=== PATIENT | female | born 1970 | race Caucasian/White ===

== ENCOUNTER 2019-04-02 07:33 | Outpatient (CLI) | payer BC, SELFPAY ==
[2019-04-02 08:20] LABS: Basophils % 0.6 %; Eosinophils # 0.2 10^3/uL (0.0-0.8); Eosinophils % 4.7 %; Hematocrit 38.3 % (37.0-47.0); Hemoglobin 12.7 g/dL (11.5-15.3); Lymphocytes # 2.7 10^3/uL (0.8-4.8); Lymphocytes % 52.7 %; Mean Corpuscular HGB Conc 33.2 g/dL (30.0-36.0); Mean Corpuscular Hemoglobin 29.5 pg (28.0-34.0); Mean Corpuscular Volume 89.1 fL (81-99); Mean Platelet Volume 9.3 fL (7.4-10.4); Monocytes # 0.4 10^3/uL (0.2-0.9); Monocytes % 7.1 %; Neutrophils # 1.8 10^3/uL (1.8-7.7); Neutrophils % 34.7 %; Nucleated Red Blood Cells % 0 %; Platelet Count 417 10^3/cmm (130-400); White Blood Count 5.1 10^3/uL (4.0-10.0)
== END 2019-04-02 07:34 | disposition home or self-care (01) ==
LOC: ONCMED 07:37
PROVIDERS: Family Provider Family Medicine; PCP Family Medicine; Referring Provider Family Medicine; Visit Provider Internal Medicine Hematology & Oncology
DX: D47.3 Essential (hemorrhagic) thrombocythemia (principal); F41.9 Anxiety disorder, unspecified; J45.909 Unspecified asthma, uncomplicated; E55.9 Vitamin D deficiency, unspecified; L50.9 Urticaria, unspecified; Z79.51 Long term (current) use of inhaled steroids; Z90.710 Acquired absence of both cervix and uterus; Z87.891 Personal history of nicotine dependence
CPT/HCPCS: 36415; 85025; 99204

== ENCOUNTER 2019-04-10 07:43 | Outpatient (CLI) | payer BC, SELFPAY ==
--- NOTE | 2019-04-10 07:50 | MM_ITS ---
WS: [id number] SCREENING DIGITAL MAMMOGRAM WITH CAD HISTORY: SCREENING COMPARISON: 01/07/2016 Bilateral CC and MLO views submitted. Computer aided detection analyzed. Breast composition: There are scattered areas of fibroglandular density. No suspicious masses, microc alcifications or architectural distortion. MM/[place] [id number] IMPRESSION: BI-RADS: 1-Negative FOLLOW UP: 1 Year Follow-up
== END 2019-04-10 07:44 | disposition home or self-care (01) ==
LOC: RADSHAW 07:46
PROVIDERS: Family Provider Family Medicine; PCP Family Medicine; Visit Provider Family Medicine
DX: Z12.31 Encounter for screening mammogram for malignant neoplasm of breast (principal)
CPT/HCPCS: 77067

== ENCOUNTER 2020-12-02 20:00 | Outpatient (CLI) | payer BC, SELFPAY | END 2020-12-02 20:01 | disposition home or self-care (01) | LOC: SLEEP 12-03 08:49 | PROVIDERS: Family Provider Family Medicine; PCP Internal Medicine; Visit Provider Internal Medicine Pulmonary Disease | DX: G47.33 Obstructive sleep apnea (adult) (pediatric) (principal) | CPT/HCPCS: 95810 ==

== ENCOUNTER 2021-09-23 13:18 | Emergency (ER) | payer BC, SELFPAY ==
--- NOTE | 2021-09-23 13:33 | XR_ITS ---
WS: [id number] XR ankle RT min 3V* [id number] REASON FOR EXAM: R ankle pain FINDINGS: There is focal soft tissue swelling over the lateral malleolus. This is associated with a small slive r of bone density immediately adjacent to the syndesmotic (lateral) surface of the tibia. No other acute fracture is identified. The joint spaces of the right ankle appear intact. There may be a small anterior joint effusion. XR/XR ankle RT min 3V* [id number] IMPRESSION: Possible acute small avulsion injury of the tibial aspect of the tibiofibular s yndesmosis.
[2021-09-23 13:44] VITALS: BP 129/85; PULSE 72; RESP 16; TEMP 36.7; O2SAT 99; BMI 35.8
--- NOTE | 2021-09-23 14:02 | ED_ITS ---
HPI - Extremity Problem General: Chief complaint: Extremity Injury, Lower Stated complaint: right ankle pain Time Seen by Provider: 09/23/21 13:50 Source: patient Mode of arrival: wheelchair Limitations: no limitations History of Present Illness: 50-year-old female presents to the ER today for right ankle pain. Patient reports she was walking across a parking lot and stepped in a hole. She reports her ankle rolled. Patient denies feeling a pop. She reports she had immediate pain and swelling in that ankle. Patient reports she does not take anything for pain at this time. She reports pain with any weightbearing. She describes as a sharp shooting pain and also a burning pain over the ankle bone. Denies any prior injury to this ankle. Review of Systems General: Reports: 10 or more systems reviewed and unremarkable except in HPI and below PFSH ED PFSH: Social History Smoking and tobacco status: former smoker Quit status (tobacco): has quit using tobacco Year quit tobacco: 2012 Former quit date comment: 0.75ppd x 25 years Physical Exam Const: COMMON NORMALS: average body habitus, patient oriented x3, no limitations, healthy appearing and alert Resp: COMMON NORMALS: normal respiratory effort EFFORT & INSPECTION: Yes able to speak in complete sentences Cardio: COMMON NORMALS: regular rate and regular rhythm RATE: regular rate RHYTHM: regular rhythm Extremity: NARRATIVE EXTREMITY EXAM: Patient has moderate swelling directly over the right lateral malleolus. Patient has pain with any range of motion or weightbearing of the right ankle. Flexion and extension in addition to inversion and eversion both cause worsening pain. Neuro: COMMON NORMALS: patient oriented x3 SENSORIUM/ORIENTATION: Yes alert Psych: COMMON NORMALS: mental status grossly normal, Normal thought process present and cooperative THOUGHT PROCESS: Normal thought process present Skin: COMMON NORMALS: no rashes or lesions noted and no wounds GENERAL SKIN EXAM: no rashes or lesions noted Course ED course: 50-year-old female presents to the ER today for right ankle pain. Patient reports just prior to arrival she was walking across a parking lot and stepped in a hole, twisting the right ankle. She denies feeling a pop but reports immediate pain and swelling in that ankle. Patient reports it is a burning and stabbing pain. Denies any prior injury to that ankle. We will get an x-ray at this time. Consultations: Consultation #1: Spoke with Dr. Alex who recommends splinting and crutches and F/U in clinic next week. Pt was notified of this also. Time: 14:53 Vital Signs: Vital signs: Vital Signs Temperature 98.0 F 09/23/21 13:44 Pulse Rate 72 09/23/21 13:44 Respiratory Rate 16 09/23/21 13:44 Blood Pressure 129/85 09/23/21 13:44 Pulse Oximetry 99 09/23/21 13:44 MDM - Extremity (Nontraumatic) Medical Decision Making 50-year-old female presents to the ER today for right ankle pain. Patient reports just prior to arrival she was walking across a parking lot and stepped in a hole, twisting the right ankle. She denies feeling a pop but reports immediate pain and swelling in that ankle. Patient reports it is a burning and stabbing pain. Denies any prior injury to that ankle. We will get an x-ray at this time. X-ray indicates a possible avulsion fracture. I spoke with Dr. Alex who recommends splinting patient and placing her on crutches. Recommends following up in the office next week. Rest, ice, elevation recommended. Discussed ibuprofen alternated with Tylenol for pain for patient at home. Patient given the information about follow-up. Return to the ER with new or worsening symptoms. Patient verbalized understanding and was in agreement with the treatment plan. Lab Data Radiology Impressions Ankle X-Ray 09/23/21 13:33 IMPRESSION: Possible acute small avulsion injury of the tibial aspect of the tibiofibular syndesmosis. Critical Care Time Critical Care Time: Critical Care Time: No Discharge Plan Discharge Patient Disposition: Home Clinical Impression: Avulsion injury of right ankle region Condition: Stable Prescriptions: No Action cetirizine [Zyrtec] 10 mg tablet 10 mg PO BID 0RF aspirin [Adult Aspirin Regimen] 81 mg tablet,delayed release (DR/EC) 81 mg PO DAILY 0RF famotidine 20 mg tablet 20 mg PO BID 0RF duloxetine 30 mg capsule,delayed release(DR/EC) 30 mg PO DAILY 0RF montelukast 10 mg tablet 10 mg PO DAILY 0RF epinephrine [EpiPen Jr 2-Robe] 0.15 mg/0.3 mL auto-injector 0.15 mg IM Q30M PRN0RF Rx Instructions: do not exceed 12 doses per 24 hrs albuterol sulfate 2.5 mg /3 mL (0.083 %) solution for nebulization 2.5 mg inhalation Q4H PRN0RF albuterol sulfate [Ventolin HFA] 90 mcg/actuation HFA aerosol inhaler 2 puff inhalation Q6H PRN0RF Spiriva Respimat 1.25 mcg/actuation mist 2 puff inhalation DAILY Qty: 4 3RF fluticasone propion-salmeterol [Advair Diskus] 250-50 mcg/dose blister with device 1 inh inhalation BID Qty: 60 3RF azithromycin [Zithromax TRI-ROBE] 500 mg tablet 500 mg PO DAILY 5 Days Qty: 5 0RF Discharge Orders: Discharge ED (Routine); Ordered 09/23/21 Ordered By: Mónica Antoine Referrals: Pelon Conte DO [Primary Care Provider] - Discharge Diet: Usual diet Discharge Activity: Limit activity as instructed and Use walker/crutches as instructed Patient Instructions: Opioid Safety Activity Restrictions/Additional Instructions: Wear splint and use crutches as discussed. Do not weight-bear until follow-up with Ortho. Contact Ortho for an appointment next week. Rest, ice, elevation recommended 20 minutes on 20 minutes off or ice. Alternate Tylenol and Motrin for pain. Return to the ER with new or worsening symptoms. Coding Level of Care Code ED [employer] for Diego Fwfamilia Exam Detailed
== END 2021-09-23 15:28 | disposition home or self-care (01) ==
PROVIDERS: Emergency Provider Physician Assistant; PCP Internal Medicine
DX: S82.891A Other fracture of right lower leg, initial encounter for closed fracture (principal); X50.1XXA Overexertion from prolonged static or awkward postures, initial encounter; Z79.82 Long term (current) use of aspirin; Z87.891 Personal history of nicotine dependence
CPT/HCPCS: 73610; 99283; E0114

== ENCOUNTER 2024-07-15 07:02 | Emergency (ER) | payer OTHER, SELFPAY ==
[2024-07-15] VITALS (9 sets, daily range): BP systolic 104–164; BP diastolic 65–93; PULSE 49–67; RESP 10–20; TEMP 36.7; O2SAT 93–98; BMI 32.9
--- NOTE | 2024-07-15 07:06 | XR_ITS ---
WS: [id number] Exam: XR chest 1V portable [id number] Date/Time of Exam: 07/15/2024 7:14 AM Reason For Exam: chest pain Comparison 05/10/2015. Lungs are fully inflated and clear. Normal cardiomediastinal silhouette and regional bony elements. No pleural effusion. XR/XR chest 1V portable [id number] IMPRESSION: 1. Normal chest.
--- NOTE | 2024-07-15 07:08 | W.ED.CHESTPA ---
HPI - Chest Pain General: Chief Complaint: Chest Pain Stated Complaint: CP Time Seen by Provider: 07/15/24 07:05 History of Present Illness: 53-year-old female presents emergency room with complaints of chest pain under her left breast. Its better when she moves her left breast. Worse when she takes a deep breath or moves. She did try breathing treatment last night at home with no relief of her symptoms. Has not had any fever sweats chills or productive cough. No shortness of breath. Associated symptoms: Deny abdominal pain, dyspnea or fever(s) Related Data Home Medications ?Medication ?Instructions ?Recorded ?Confirmed albuterol sulfate 2.5 mg/3 mL 2.5 mg inhalation Q4H PRN 09/29/20 07/15/24 (0.083 %) solution for nebulization Shortness Of Breath Or Wheezing albuterol sulfate 90 mcg/actuation 2 puff inhalation Q6H PRN 09/29/20 07/15/24 aerosol inhaler (Ventolin HFA) Shortness Of Breath Or Wheezing cetirizine 10 mg tablet (Zyrtec) 10 mg PO BID 09/29/20 07/15/24 montelukast 10 mg tablet 10 mg PO DAILY 09/29/20 07/15/24 fluticasone 500 mcg-salmeterol 50 1 inh inhalation BID 07/15/24 07/15/24 mcg/dose blistr powdr for inhalation (Advair Diskus) Previous Rx's ?Medication ?Instructions ?Recorded hydrocodone 5 mg-acetaminophen 325 1 tab PO Q6H PRN pain #15 tabs 07/15/24 mg tablet Allergies Allergy/AdvReac Type Severity Reaction Status Date / Time No Known Allergies Allergy Verified 09/28/21 08:11 Review of Systems Const: Denies: fever(s) or chills Card: Reports: chest pain Resp: Denies: dyspnea GI: Denies: abdominal pain : Denies: dysuria, urinary frequency or urinary urgency Musc: Denies: neck pain or back pain Skin/Breast: Denies: rash PFSH ED PFSH: Medical History (Updated 07/15/24 @ 11:52 by Lewis Bentley DO) MARUQITA (obstructive sleep apnea) GERD (gastroesophageal reflux disease) Social History Smoking and tobacco/nicotine status: former use of tobacco/nicotine Quit status (tobacco/nicotine): has quit using Year quit tobacco: 2012 Former quit date comment: 0.75ppd x 25 years Physical Exam Const: COMMON NORMALS: no acute distress GENERAL APPEARANCE: cooperative and comfortable ORIENTATION/CONSCIOUSNESS: Yes awake, Yes oriented to person, Yes oriented to place and Yes oriented to time HENMT: COMMON NORMALS: normocephalic, atraumatic and hearing grossly normal bilaterally HEAD & SCALP: normocephalic and atraumatic Chest: OTHER: Pain reproducible with palpation of the lower ribs at the anterior axillary line on the left Resp: COMMON NORMALS: normal respiratory effort, No retractions, No use of accessory muscles and clear to auscultation bilaterally AUSCULTATION: clear to auscultation bilaterally Cardio: COMMON NORMALS: regular rate, regular rhythm and No murmurs present (Cardio) RATE: regular rate RHYTHM: regular rhythm GI: COMMON NORMALS: Soft to palpation and No hepatosplenomegaly present AUSCULTATION: Yes normoactive bowel sounds PALPATION: Yes Soft to palpation, No Tenderness to palpation present (GI), No Guarding due to palpation present (GI) and Yes No hepatosplenomegaly present Extremity: COMMON NORMALS: normal to inspection, capillary refill normal, no clubbing, cyanosis or edema, no calf tenderness and no pedal edema Neuro: SENSORIUM/ORIENTATION: Yes oriented to person, Yes oriented to place and Yes oriented to time Skin: COMMON NORMALS: no rashes or lesions noted GENERAL SKIN EXAM: no rashes or lesions noted Course Vital Signs: Vital signs: Vital Signs Temperature 98.1 F 07/15/24 07:10 Pulse Rate 52 L 07/15/24 11:59 Respiratory Rate 13 07/15/24 11:00 Blood Pressure 140/79 07/15/24 11:59 Pulse Oximetry 95 07/15/24 11:59 Oxygen Delivery Me thod Room Air 07/15/24 07:10 MDM - Chest Pain Medical Decision Making EKG does not show any acute changes, normal sinus bradycardia no ST changes. Reviewed as found in the chart. Chest x-ray normal. Troponins negative both test below 6. Pain reproducible with palpation with deep breath. Will discharge patient home anti-inflammatories Tylenol as needed follow-up with primary care if not improving Lab Data 07/15/24 07:39 07/15/24 07:39 Radiology Impressions Chest X-Ray 07/15/24 07:06 IMPRESSION: 1. Normal chest. Laboratory Results WBC 4.99 10^3/uL (3.29-11.43) 07/15/24 07:39 RBC 4.58 10^6/uL (3.85-5.65) 07/15/24 07:39 Hgb 13.60 g/dL (11.27-16.99) 07/15/24 07:39 Hct 40.0 % (36-47) 07/15/24 07:39 MCV 87.3 fl (85-98) 07/15/24 07:39 MCH 29.7 pg (27-33) 07/15/24 07:39 MCHC 34.0 g/dL (30-55) 07/15/24 07:39 RDW 13.4 % (12.1-15.1) 07/15/24 07:39 Plt Count 362 10^3/cmm (157-399) 07/15/24 07:39 MPV 9.3 fL (7.4-10.4) 07/15/24 07:39 Neut % (Auto) 38.7 % 07/15/24 07:39 Lymph % (Auto) 45.7 % 07/15/24 07:39 [place] % (Auto) 8.4 % 07/15/24 07:39 Eos % (Auto) 5.8 % 07/15/24 07:39 Baso % (Auto) 1.2 % 07/15/24 07:39 Neut # (Auto) 1.93 10^3/uL (1.8-7.7) 07/15/24 07:39 Lymph # (Auto) 2.3 10^3/uL (0.8-4.8) 07/15/24 07:39 [place] # (Auto) 0.4 10^3/uL (0.2-0.9) 07/15/24 07:39 Eos # (Auto) 0.3 10^3/uL (0.0-0.8) 07/15/24 07:39 Baso # (Auto) 0.1 10^3/uL (0.0-0.1) 07/15/24 07:39 Nucleated RBC % (auto) 0 % 07/15/24 07:39 Nucleated RBCs # 0.0 /100WBC 07/15/24 07:39 Sodium 140 mmol/L (136-145) 07/15/24 07:39 Potassium 4.2 mmol/L (3.5-5.1) 07/15/24 07:39 Chloride 103 mmol/L (98-107) 07/15/24 07:39 Carbon Dioxide 22 mmol/L (22-29) 07/15/24 07:39 Anion Gap 19.2 (5-19) H 07/15/24 07:39 BUN 8 mg/dL (6-20) 07/15/24 07:39 Creatinine 0.8 mg/dL (0.5-0.9) 07/15/24 07:39 GFR Calculation 74.7 mL/min (90-130) L 07/15/24 07:39 Glucose 105 mg/dL (65-115) 07/15/24 07:39 Calculated Osmolality 289 mOsm/kg (285-295) 07/15/24 07:39 Calcium 9.5 mg/dL (8.5-10.5) 07/15/24 07:39 Total Bilirubin 0.4 mg/dL (0.15-1.2) 07/15/24 07:39 AST 21 U/L (0-32) 07/15/24 07:39 ALT 27 U/L (0-33) 07/15/24 07:39 Alkaline Phosphatase 91 U/L (35-105) 07/15/24 07:39 Troponin T Baseline < 6 ng/L (0-10) 07/15/24 07:39 Troponin T 120 Minute < 6.0 ng/L (0-10) 07/15/24 09:48 Delta Troponin T 0 ABS# (0-10) 07/15/24 09:48 Total Protein 7.0 g/dL (6.6-8.7) 07/15/24 07:39 Albumin 4.6 g/dL (3.5-5.2) 07/15/24 07:39 Globulin 2.4 g/dL (1.3-4.6) 07/15/24 07:39 All radiology interpretation(s) finalized by discharge Discharge Plan Discharge Patient Disposition: Home Clinical Impression: Acute chest wall pain Condition: Stable Prescriptions: New hydrocodone-acetaminophen 5-325 mg tablet 1 tab PO Q6H PRN (Reason: pain) Qty: 15 0RF No Action cetirizine [Zyrtec] 10 mg tablet 10 mg PO BID montelukast 10 mg tablet 10 mg PO DAILY albuterol sulfate 2.5 mg /3 mL (0.083 %) solution for nebulization 2.5 mg inhalation Q4H PRN (Reason: Shortness Of Breath Or Wheezing) albuterol sulfate [Ventolin HFA] 90 mcg/actuation HFA aerosol inhaler 2 puff inhalation Q6H MDD s PRN (Reason: Shortness Of Breath Or Wheezing) fluticasone propion-salmeterol [Advair Diskus] 500-50 mcg/dose blister with device 1 inh INHALATION BID Discharge Orders: Discharge ED (Routine); Ordered 07/15/24 Ordered By: Lewis Bentley Referrals: Pelon Conte, [Primary Care Provider, Internal Medicine] Discharge Diet: Usual diet Discharge Activity: Increase activity as tolerated Patient Instructions: Opioid Safety, Pain Management Activity Restrictions/Additional Instructions: Thank you for choosing [facility] for your healthcare needs today. It is very important that you follow up as instructed or that you return to the Emergency Department should you have concerns or if your condition changes or worsens in any way. You are seen in the emergency room with complaints of chest pain. Nature of your pain based on your description is more musculoskeletal. Your chest x-ray was normal your white count was normal and your cardiac enzymes were also normal. You can use the pain medicine prescribed as needed. Print Language: British Coding Level of Care Code ED [employer] Sales Executive for Diego Wright
[2024-07-15] MEDS: aspirin 81 mg Chew Tablet 324 MG PO (07:26)
[2024-07-15 07:49] LABS: Basophils # 0.1 10^3/uL (0.0-0.1); Basophils % 1.2 %; Eosinophils # 0.3 10^3/uL (0.0-0.8); Eosinophils % 5.8 %; Lymphocytes # 2.3 10^3/uL (0.8-4.8); Lymphocytes % 45.7 %; Mean Corpuscular Hemoglobin 29.7 pg (27-33); Mean Corpuscular Volume 87.3 fl (85-98); Mean Platelet Volume 9.3 fL (7.4-10.4); Monocytes # 0.4 10^3/uL (0.2-0.9); Monocytes % 8.4 %; Neutrophils # 1.93 10^3/uL (1.8-7.7); Neutrophils % 38.7 %; Nucleated Red Blood Cells % 0 %; Platelet Count 362 10^3/cmm (157-399); Red Blood Count 4.58 10^6/uL (3.85-5.65); Red Cell Distribution Width 13.4 % (12.1-15.1); White Blood Count 4.99 10^3/uL (3.29-11.43)
[2024-07-15 08:04] LABS: Troponin(5th) Baseline < 6 ng/L (0-10)
[2024-07-15 08:08] LABS: Alanine Aminotransferase 27 U/L (0-33); Albumin Level 4.6 g/dL (3.5-5.2); Alkaline Phosphatase 91 U/L (35-105); Anion Gap 19.2 (5-19); Aspartate Amino Transferase 21 U/L (0-32); Blood Urea Nitrogen 8 mg/dL (6-20); Calcium 9.5 mg/dL (8.5-10.5); Carbon Dioxide 22 mmol/L (22-29); Chloride 103 mmol/L (98-107); Creatinine Clr Calc Pharmacy 79.5963; Globulin 2.4 g/dL (1.3-4.6); Glomerular Filtration Rate 74.7 mL/min (90-130); Glucose 105 mg/dL (65-115); Osmolality Calculated 289 mOsm/kg (285-295); Potassium 4.2 mmol/L (3.5-5.1); Sodium 140 mmol/L (136-145); Total Bilirubin 0.4 mg/dL (0.15-1.2)
--- NOTE | 2024-07-15 09:06 | ECG_ITS ---
[email or web address] Date: 2024-07-15 Pat Name: Olivia Wakefield Department: Room: Gender: Female Clinical Documentation Improvement Specialist: : [id number] Requested By: Lewis Dyer Order Number: [id number] Reading MD: GORDY MONSALVE Measurements Intervals Commerce Rate: 55 P: 72 PA: 172 QRS: 59 QRSD: 98 T: 69 QT: 444 QTc: 426 Interpretive Statements SINUS BRADYCARDIA Compared to ECG 05/10/2015 08:53:02 Sinus rhythm no longer present Electronically Signed On 07-17-2024 23:47:17 CDT by GORDY MONSALVE [email or web address]
[2024-07-15 10:43] LABS: Troponin 5 2HR < 6.0 ng/L (0-10); Troponin 5 2HR Delta 0 ABS# (0-10)
== END 2024-07-15 12:01 | disposition home or self-care (01) ==
PROVIDERS: Emergency Provider Family Medicine; PCP Internal Medicine
DX: R07.89 Other chest pain (principal); Z87.891 Personal history of nicotine dependence
CPT/HCPCS: 36415; 71045; 80053; 84484; 85025; 93005; 99285; J9999